=== PATIENT | male | born 1970 | race Caucasian/White ===

== ENCOUNTER 2022-05-16 14:56 | Outpatient (CLI) | payer OTHER, SELFPAY ==
[2022-05-16 22:50] LABS: Chloride* 106 mmol/L (96-114); Potassium* 4.1 mmol/L (3.6-5.1); Sodium* 141 mmol/L (135-149)
[2022-05-16 22:52] LABS: Cholesterol* 154 mg/dL (90-199)
[2022-05-16 22:53] LABS: Blood Urea Nitrogen* 19 mg/dL (7-30); Calcium* 9.3 mg/dL (8.4-10.6); Carbon Dioxide* 28 mmol/L (20-32); Estimated Glomerular Filt Rate 90 ml/min; Glucose* 87 mg/dL (60-115); Triglycerides* 70 mg/dL (40-149)
[2022-05-16 22:54] LABS: HDL Cholesterol* 54 mg/dL (>=40); LDL Cholesterol Calculated 86 mg/dL (<100)
== END 2022-05-16 14:57 | disposition home or self-care (01) ==
PROVIDERS: Visit Provider Family Medicine
DX: Z00.00 Encounter for general adult medical examination without abnormal findings (principal); Z12.5 Encounter for screening for malignant neoplasm of prostate; Z13.6 Encounter for screening for cardiovascular disorders
CPT/HCPCS: 80048; 80061; 84153

== ENCOUNTER 2022-06-20 09:48 | Outpatient (CLI) | payer OTHER, SELFPAY ==
--- NOTE | 2022-06-20 12:19 | W.ANESCHARGE ---
Anesthesia Charges Start Date/Time Anesthesia Start Date: 06/20/22 Anesthesia Start Time: 11:47 Stop Date/Time Anesthesia Stop Date: 06/20/22 Anesthesia Stop Time: 12:20 Summary Emergency: No
--- NOTE | 2022-06-20 12:24 | W.ANESCHARGE ---
Anesthesia Charges Start Date/Time Anesthesia Start Date: 06/20/22 Anesthesia Start Time: 11:47 Stop Date/Time Anesthesia Stop Date: 06/20/22 Anesthesia Stop Time: 12:20 Summary Emergency: No
== END 2022-06-20 09:49 | disposition home or self-care (01) ==
PROVIDERS: Visit Provider Surgery
DX: Z12.11 Encounter for screening for malignant neoplasm of colon (principal); K63.5 Polyp of colon
CPT/HCPCS: 00811; 00812; 45385; 88305; J2250; J3010

== ENCOUNTER 2023-01-18 08:04 | Outpatient (CLI) | payer OTHER, SELFPAY | END 2023-01-18 08:05 | disposition home or self-care (01) | LOC: NFLDREF 01-21 08:00 | PROVIDERS: Visit Provider Family Medicine | DX: R97.20 Elevated prostate specific antigen [PSA] (principal) | CPT/HCPCS: 84153 ==